=== PATIENT | female | born 1945 | race Caucasian/White ===

== ENCOUNTER 2016-10-12 09:29 | Emergency (ER) | payer MEDICARE ==
[2016-10-12 09:59] VITALS: BP 169/75
== END 2016-10-12 11:40 | disposition left against medical advice (07) ==
LOC: UCEAST 09:29
DX: R51 Headache (principal); Z53.21 Procedure and treatment not carried out due to patient leaving prior to being seen by health care provider

== ENCOUNTER 2020-01-24 18:26 | Observation (INO) ==
[2020-01-24] MEDS ORDERED: NS 0.9% 1000 ml BAG 1,000 ML IV ONE (18:55)
[2020-01-24 19:31] LABS: Troponin I 0.01 ng/mL (<0.03)
[2020-01-24 19:36] LABS: Albumin 4.1 g/dL (3.2-5.2); Albumin/Globulin Ratio 1.6 (1-3); BUN/Creatinine Ratio 19.6 (8-20); EGFR African American 71.8 (>60); EGFR Non-African American 59.4 (>60); Globulin 2.6 g/dL (2-4); Total Bilirubin 0.8 mg/dL (0.2-1.0); Total Protein 6.7 g/dL (6.4-8.9)
[2020-01-24 19:37] LABS: ABS Eosinophils 0.2 10^3/ul (0-0.6); ABS Lymphocytes 0.5 10^3/ul (1.0-4.8); ABS Monocytes 0.6 10^3/ul (0-0.8); ABS Neutrophils 9.1 10^3/ul (1.5-7.7); Eosinophil % 1.8 %; Hematocrit 40 % (35-47); Hemoglobin 13.9 g/dL (12.0-16.0); Lymphocyte % 4.9 %; Mean Corpuscular HGB Conc 35 g/dL (31-36); Mean Corpuscular Hemoglobin 32 pg (27-31); Mean Corpuscular Volume 90 fL (80-97); Mean Platelet Volume 9.1 fL (7.4-10.4); Platelet Count 70 10^3/uL (150-450); Red Blood Count 4.37 10^6 /uL (3.70-4.87); Red Cell Distribution Width 13 % (10-15); White Blood Count 10.4 10^3/uL (3.5-10.8)
[2020-01-24 21:07] LABS: Urine Appearance Cloudy; Urine Bilirubin Negative (Negative); Urine Blood Negative (Negative); Urine Color Yellow; Urine Glucose Negative (Negative); Urine Ketones Trace (Negative); Urine Nitrite Negative (Negative); Urine Protein Negative (Negative); Urine Specific Gravity 1.016 (1.010-1.030); Urine Urobilinogen Negative (Negative)
[2020-01-24 21:13] LABS: Urine Bacteria 1+ (Absent); Urine Red Blood Cell Trace(0-2/hpf) (Absent); Urine Squamous Epithelial Cell Present (Absent); Urine White Blood Cell 3+(>20/hpf) (Absent)
[2020-01-24] MEDS ORDERED: cefTRIAXone 1 gm/50 mL NS BAG 1 GM/50 ML BAG IV ONE (21:46)
[2020-01-25] MEDS ORDERED: NS 0.9% 1000 ml BAG 1,000 ML IV SCH (02:00)
[2020-01-25 09:02] LABS: ABS Eosinophils 0.4 10^3/ul (0-0.6); ABS Lymphocytes 0.7 10^3/ul (1.0-4.8); ABS Monocytes 0.5 10^3/ul (0-0.8); ABS Neutrophils 4.8 10^3/ul (1.5-7.7); Eosinophil % 6.1 %; Hematocrit 38 % (35-47); Hemoglobin 12.7 g/dL (12.0-16.0); Lymphocyte % 10.5 %; Mean Corpuscular HGB Conc 34 g/dL (31-36); Mean Corpuscular Hemoglobin 30 pg (27-31); Mean Corpuscular Volume 90 fL (80-97); Mean Platelet Volume 8.7 fL (7.4-10.4); Platelet Count 53 10^3/uL (150-450); Red Blood Count 4.19 10^6 /uL (3.70-4.87); Red Cell Distribution Width 13 % (10-15); White Blood Count 6.5 10^3/uL (3.5-10.8)
[2020-01-25 09:05] LABS: BUN/Creatinine Ratio 14.3 (8-20); C Reactive Protein 36.89 mg/L (<8.01); Calcium 8.9 mg/dL (8.6-10.3); EGFR African American 79.8 (>60); EGFR Non-African American 65.9 (>60); Magnesium 1.8 mg/dL (1.9-2.7); Potassium 3.9 mmol/L (3.5-5.0)
[2020-01-25 09:24] LABS: Troponin I 0.01 ng/mL (<0.03)
[2020-01-25 11:24] VITALS: BP 104/50
[2020-01-25] MEDS ORDERED: cefTRIAXone 1 gm/50 mL NS BAG 1 GM/50 ML BAG IVPB SCH (22:00)
== END 2020-01-25 15:25 | disposition home or self-care (01) ==
LOC: MED 18:26 → ED 18:26 → MED 23:51
PROVIDERS: ADMIT Internal Medicine; ATTEND Internal Medicine

== ENCOUNTER 2020-12-13 07:23 | Inpatient (IN) ==
[2020-12-13] MEDS ORDERED: fentaNYL 100 mcg/2 ml 50 MCG/ML VIAL IV SLOW PU ONE (07:40)
[2020-12-13] MEDS ORDERED: Lidocaine 1% VIAL 10 MG/ML VIAL INJ ONE (08:42)
[2020-12-13 09:08] LABS: ABS Eosinophils 0.1 10^3/ul (0-0.6); ABS Lymphocytes 1.5 10^3/ul (1.0-4.8); ABS Monocytes 0.5 10^3/ul (0-0.8); ABS Neutrophils 9.4 10^3/ul (1.5-7.7); Eosinophil % 0.6 %; Hematocrit 44 % (35-47); Hemoglobin 14.9 g/dL (12.0-16.0); Lymphocyte % 12.6 %; Mean Corpuscular HGB Conc 34 g/dL (31-36); Mean Corpuscular Hemoglobin 31 pg (27-31); Mean Corpuscular Volume 93 fL (80-97); Mean Platelet Volume 9.8 fL (7.4-10.4); Platelet Count 80 10^3/uL (150-450); Red Blood Count 4.78 10^6 /uL (3.70-4.87); Red Cell Distribution Width 14 % (10-15); White Blood Count 11.5 10^3/uL (3.5-10.8)
[2020-12-13 09:11] LABS: ALT 21 U/L (7-52); Albumin 4.4 g/dL (3.2-5.2); Albumin/Globulin Ratio 1.5 (1-3); Alkaline Phosphatase 56 U/L (35-149); Blood Urea Nitrogen 18 mg/dL (6-24); CO2 Carbon Dioxide 27 mmol/L (22-32); Calcium 9.4 mg/dL (8.6-10.3); Chloride 104 mmol/L (101-111); EGFR African American 65.1 (>60); EGFR Non-African American 53.8 (>60); Glucose 132 mg/dL (70-100); Sodium 137 mmol/L (135-145); Total Protein 7.4 g/dL (6.4-8.9)
[2020-12-13 09:37] LABS: Anion Gap 6 mmol/L (2-11)
[2020-12-13] MEDS ORDERED: Calcium Carb (TUMS) 500 mg CHEW TAB PO PRN (11:25)
[2020-12-13 12:20] LABS: Urine Appearance Cloudy; Urine Bilirubin Negative (Negative); Urine Blood Negative (Negative); Urine Color Amber; Urine Glucose Negative (Negative); Urine Ketones Negative (Negative); Urine Nitrite Negative (Negative); Urine Protein Negative (Negative); Urine Specific Gravity 1.015 (1.002-1.030); Urine Urobilinogen Negative (Negative)
[2020-12-13 14:58] LABS: Potassium Redraw 3.8 mmol/L (3.5-5.0)
[2020-12-14 06:22] LABS: ABS Eosinophils 0.1 10^3/ul (0-0.6); ABS Monocytes 0.8 10^3/ul (0-0.8); ABS Neutrophils 5.1 10^3/ul (1.5-7.7); Eosinophil % 1.5 %; Hematocrit 40 % (35-47); Hemoglobin 13.6 g/dL (12.0-16.0); Lymphocyte % 24.9 %; Mean Corpuscular HGB Conc 34 g/dL (31-36); Mean Corpuscular Hemoglobin 31 pg (27-31); Mean Corpuscular Volume 93 fL (80-97); Nucleated Red Blood Cells % 0.1; Platelet Count 82 10^3/uL (150-450); Red Blood Count 4.33 10^6 /uL (3.70-4.87); Red Cell Distribution Width 14 % (10-15); White Blood Count 7.9 10^3/uL (3.5-10.8)
[2020-12-14 06:24] LABS: INR 1.12 (0.86-1.15)
[2020-12-14 06:36] LABS: Calcium 9.1 mg/dL (8.6-10.3); EGFR African American 73.5 (>60); EGFR Non-African American 60.7 (>60); Potassium 3.7 mmol/L (3.5-5.0)
[2020-12-14] MEDS: Latanoprost 0.005% 2.5 ml BTL BOTH EYES SCH (08:08)
[2020-12-14] MEDS: Polyethylene Glycol 3350 17 GM PACKET PO SCH (08:26)
[2020-12-14] MEDS ORDERED: Perflutren Lipid Microsphere 3 ML VIAL ONE (08:37)
[2020-12-14] MEDS ORDERED: Senna TAB 8.6 mg TAB PO PRN (09:05)
[2020-12-14] MEDS ORDERED: ceFAZolin 2 GM in NS PREMIX 2 GM/100 ML BAG IVPB ONE (16:52)
[2020-12-14] MEDS ORDERED: ROPIVACAINE 5 MG/ML 30 ML BTL (0.5%) ONE (17:03)
[2020-12-14] MEDS ORDERED: Rocuronium 50 mg VIAL 10 mg/ml 5 ml VIAL (50 mg) ONE (17:54)
[2020-12-14] MEDS ORDERED: Lidocaine 2% PF 5 ML VIAL ONE (17:54)
[2020-12-14] MEDS ORDERED: Propofol 10 MG/ML 20 ML BTL ONE (17:54)
[2020-12-14] MEDS ORDERED: fentaNYL 250 mcg/5 ml 50 MCG/ML 5 ml VIAL (250 MCG) ONE (17:55)
[2020-12-14] MEDS ORDERED: Esmolol 10 MG/ML 10 ML (100 mg) ONE (18:20)
[2020-12-14] MEDS ORDERED: Ondansetron 4 mg VIAL 2 MG/ML 2 ml VIAL ONE (18:38)
[2020-12-14] MEDS ORDERED: Dexamethasone IV 4 MG/ML VIAL 1 ml VIAL ONE (18:38)
[2020-12-14] MEDS ORDERED: Acetaminophen IV 1 GM/100ML 100 ML IV ONE (18:40)
[2020-12-14] MEDS ORDERED: HYDROmorphone 1 MG/1 ML SYRINGE ONE ×2 (19:13→20:56)
[2020-12-14] MEDS ORDERED: Metoprolol Tartrate 5 mg VIAL 5 ml VIAL (1 mg/ml) ONE ×3 (19:35→20:21)
[2020-12-14] MEDS ORDERED: diPHENhydraMINE IV 50 MG/ML 1 ml VIAL (BENADRYL) IV PRN (20:37)
[2020-12-14] MEDS ORDERED: Naloxone 0.4 mg VIAL 0.4 mg/ml 1 ml VIAL IV PRN (20:37)
[2020-12-14] MEDS ORDERED: Prochlorperazine 5 mg/ml 2 ml VIAL (10 mg) IV PRN (20:37)
[2020-12-14 23:18] LABS: ABS Lymphocytes 0.9 10^3/ul (1.0-4.8); ABS Monocytes 0.4 10^3/ul (0-0.8); ABS Neutrophils 11.6 10^3/ul (1.5-7.7); Eosinophil % 0.3 %; Hematocrit 41 % (35-47); Hemoglobin 13.7 g/dL (12.0-16.0); Lymphocyte % 6.8 %; Mean Corpuscular HGB Conc 33 g/dL (31-36); Mean Corpuscular Hemoglobin 31 pg (27-31); Mean Corpuscular Volume 93 fL (80-97); Mean Platelet Volume 8.6 fL (7.4-10.4); Platelet Count 89 10^3/uL (150-450); Red Blood Count 4.44 10^6 /uL (3.70-4.87); Red Cell Distribution Width 14 % (10-15); White Blood Count 12.9 10^3/uL (3.5-10.8)
[2020-12-15] MEDS: ceFAZolin 1 GM X 3 DOSES POST-OP Q8H (AddVan) IVPB SCH ×3 (01:30→17:55)
[2020-12-15 06:14] LABS: ABS Monocytes 0.5 10^3/ul (0-0.8); ABS Neutrophils 7.3 10^3/ul (1.5-7.7); Hematocrit 40 % (35-47); Hemoglobin 13.3 g/dL (12.0-16.0); Lymphocyte % 11.1 %; Mean Corpuscular HGB Conc 34 g/dL (31-36); Mean Corpuscular Hemoglobin 31 pg (27-31); Mean Corpuscular Volume 93 fL (80-97); Mean Platelet Volume 8.7 fL (7.4-10.4); Platelet Count 105 10^3/uL (150-450); Red Blood Count 4.24 10^6 /uL (3.70-4.87); Red Cell Distribution Width 14 % (10-15); White Blood Count 8.9 10^3/uL (3.5-10.8)
[2020-12-15 06:34] LABS: EGFR African American 70.7 (>60); EGFR Non-African American 58.5 (>60); Potassium 4.2 mmol/L (3.5-5.0)
[2020-12-15] MEDS: Polyethylene Glycol 3350 17 GM PACKET PO SCH (08:47)
[2020-12-15] MEDS: Latanoprost 0.005% 2.5 ml BTL BOTH EYES SCH (08:48)
[2020-12-15] MEDS: Enoxaparin 40 MG/0.4 ML SYR SUBCUT SCH (12:40)
[2020-12-16] MEDS: cefTRIAXone 1 gm/50 mL NS BAG 1 GM/50 ML BAG IVPB SCH (05:32)
[2020-12-16 06:32] LABS: ABS Eosinophils 0.2 10^3/ul (0-0.6); ABS Lymphocytes 2.6 10^3/ul (1.0-4.8); ABS Monocytes 0.8 10^3/ul (0-0.8); ABS Neutrophils 4.9 10^3/ul (1.5-7.7); Eosinophil % 2.2 %; Hematocrit 36 % (35-47); Hemoglobin 12.4 g/dL (12.0-16.0); Lymphocyte % 30.7 %; Mean Corpuscular HGB Conc 35 g/dL (31-36); Mean Corpuscular Hemoglobin 32 pg (27-31); Mean Corpuscular Volume 92 fL (80-97); Mean Platelet Volume 8.9 fL (7.4-10.4); Platelet Count 128 10^3/uL (150-450); Red Blood Count 3.89 10^6 /uL (3.70-4.87); Red Cell Distribution Width 14 % (10-15); White Blood Count 8.6 10^3/uL (3.5-10.8)
[2020-12-16] MEDS: Polyethylene Glycol 3350 17 GM PACKET PO SCH (08:47)
[2020-12-16] MEDS: Latanoprost 0.005% 2.5 ml BTL BOTH EYES SCH (08:52)
[2020-12-16] MEDS: Enoxaparin 40 MG/0.4 ML SYR SUBCUT SCH (12:36)
[2020-12-17] MEDS: cefTRIAXone 1 gm/50 mL NS BAG 1 GM/50 ML BAG IVPB SCH (05:51)
[2020-12-17 05:52] LABS: Hematocrit 37 % (35-47); Hemoglobin 12.3 g/dL (12.0-16.0); Mean Corpuscular HGB Conc 34 g/dL (31-36); Mean Corpuscular Hemoglobin 32 pg (27-31); Mean Corpuscular Volume 94 fL (80-97); Mean Platelet Volume 8.5 fL (7.4-10.4); Platelet Count 125 10^3/uL (150-450); Red Blood Count 3.92 10^6 /uL (3.70-4.87); Red Cell Distribution Width 14 % (10-15); White Blood Count 7.3 10^3/uL (3.5-10.8)
[2020-12-17] MEDS: Polyethylene Glycol 3350 17 GM PACKET PO SCH (09:20)
[2020-12-17] MEDS: Latanoprost 0.005% 2.5 ml BTL BOTH EYES SCH (09:46)
[2020-12-17] MEDS ORDERED: Magnesium Hydroxide LIQ 30 ML UDC PO PRN (11:18)
[2020-12-17 11:31] VITALS: BP 145/79
[2020-12-17] MEDS: Enoxaparin 40 MG/0.4 ML SYR SUBCUT SCH (12:01)
== END 2020-12-17 14:15 | disposition home or self-care (01) | DRG 481 ==
LOC: ED 07:23 → SSU 11:09
PROVIDERS: ADMIT Internal Medicine; ATTEND Internal Medicine

== ENCOUNTER 2021-08-26 13:25 | Inpatient (IN) ==
[2021-08-26] MEDS ORDERED: HYDROcodone/ACETAMIN 5/325 mg TAB PO ONE (14:03)
[2021-08-26] MEDS ORDERED: oxyCODONE SR 10 mg TAB PO ONE (16:51)
[2021-08-26] MEDS ORDERED: HYDROmorphone 1 MG/1 ML SYRINGE IV SLOW PU PRN (17:54)
[2021-08-26] MEDS ORDERED: Ondansetron 4 mg VIAL 2 MG/ML 2 ml VIAL IV PRN (17:54)
[2021-08-26] MEDS ORDERED: Enoxaparin 40 MG/0.4 ML SYR SUBCUT ONE (17:57)
[2021-08-26] MEDS: Lactated Ringers 1000 ml BAG 1,000 ML IV SCH (23:52)
[2021-08-27 06:03] LABS: ABS Lymphocytes 1.8 10^3/ul (1.0-4.8); ABS Monocytes 0.9 10^3/ul (0-0.8); ABS Neutrophils 7.5 10^3/ul (1.5-7.7); Eosinophil % 0.2 %; Hematocrit 41 % (35-47); Hemoglobin 14.1 g/dL (12.0-16.0); INR 1.12 (0.86-1.15); Lymphocyte % 17.8 %; Mean Corpuscular HGB Conc 34 g/dL (31-36); Mean Corpuscular Hemoglobin 32 pg (27-31); Mean Corpuscular Volume 93 fL (80-97); Mean Platelet Volume 9.1 fL (7.4-10.4); Platelet Count 90 10^3/uL (150-450); Red Blood Count 4.46 10^6 /uL (3.70-4.87); Red Cell Distribution Width 13 % (10-15); White Blood Count 10.3 10^3/uL (3.5-10.8)
[2021-08-27 06:30] LABS: Calcium 9.3 mg/dL (8.6-10.3); Potassium 4.2 mmol/L (3.5-5.0); eGFR CKD-EPI 79.4 (>60)
[2021-08-27 10:29] LABS: Urine Appearance Turbid; Urine Bilirubin Negative (Negative); Urine Blood Negative (Negative); Urine Color Amber; Urine Glucose Negative (Negative); Urine Ketones 1+ (Negative); Urine Nitrite Negative (Negative); Urine Protein 1+(30 mg/dL) (Negative); Urine Specific Gravity 1.033 (1.002-1.030); Urine Urobilinogen Negative (Negative)
[2021-08-27 10:54] LABS: Urine Bacteria 1+ (Absent); Urine Red Blood Cell 2+(6-10/hpf) (Absent); Urine Squamous Epithelial Cell Present (Absent); Urine White Blood Cell Trace(0-5/hpf) (Absent)
[2021-08-27] MEDS: Lactated Ringers 1000 ml BAG 1,000 ML IV SCH ×2 (13:34→21:27)
[2021-08-27] MEDS ORDERED: Propofol 10 MG/ML 20 ML BTL ONE (15:00)
[2021-08-27] MEDS ORDERED: Lidocaine 2% PF 5 ML VIAL ONE (15:01)
[2021-08-27] MEDS ORDERED: fentaNYL 100 mcg/2 ml 50 MCG/ML VIAL ONE ×2 (15:01→17:18)
[2021-08-27] MEDS ORDERED: Rocuronium 50 mg VIAL 10 mg/ml 5 ml VIAL (50 mg) ONE (15:06)
[2021-08-27] MEDS ORDERED: fentaNYL 100 mcg/2 ml 50 MCG/ML VIAL IV PRN (15:11)
[2021-08-27] MEDS ORDERED: Ondansetron 4 mg VIAL 2 MG/ML 2 ml VIAL IV PRN (15:11)
[2021-08-27] MEDS ORDERED: Naloxone 0.4 mg VIAL 0.4 mg/ml 1 ml VIAL IV PRN (15:11)
[2021-08-27] MEDS ORDERED: oxyCODONE/Acetamin 5/325 mg TAB PO PRN (15:11)
[2021-08-27] MEDS ORDERED: ceFAZolin 2 GM in NS PREMIX 2 GM/100 ML BAG IVPB ONE (15:40)
[2021-08-27] MEDS ORDERED: Lidocaine 1% VIAL 10 MG/ML VIAL ONE (15:43)
[2021-08-27] MEDS ORDERED: Bupivacaine 0.5% 50 ML MDV VIAL ONE (15:43)
[2021-08-27] MEDS ORDERED: Phenylephrine IV 10 MG/ML 1 ml VIAL ONE (16:12)
[2021-08-27] MEDS ORDERED: HYDROmorphone 0.5 MG/0.5 ML SYRINGE ONE ×2 (16:25→16:37)
[2021-08-27] MEDS ORDERED: Ondansetron 4 mg VIAL 2 MG/ML 2 ml VIAL ONE (16:30)
[2021-08-27] MEDS ORDERED: Dexamethasone IV 4 MG/ML VIAL 1 ml VIAL ONE (16:30)
[2021-08-27] MEDS ORDERED: Acetaminophen IV 1 GM/100ML 100 ML IV ONE (17:19)
[2021-08-27 18:23] LABS: ABS Basophils 0.1 10^3/ul (0-0.2); ABS Lymphocytes 4.3 10^3/ul (1.0-4.8); ABS Neutrophils 19.4 10^3/ul (1.5-7.7); Eosinophil % 0.2 %; Hematocrit 37 % (35-47); Hemoglobin 12.4 g/dL (12.0-16.0); Lymphocyte % 17.3 %; Mean Corpuscular HGB Conc 33 g/dL (31-36); Mean Corpuscular Hemoglobin 31 pg (27-31); Mean Corpuscular Volume 95 fL (80-97); Mean Platelet Volume 9.1 fL (7.4-10.4); Platelet Count 113 10^3/uL (150-450); Red Blood Count 3.93 10^6 /uL (3.70-4.87); Red Cell Distribution Width 13 % (10-15); White Blood Count 24.9 10^3/uL (3.5-10.8)
[2021-08-27] MEDS ORDERED: Metoprolol Tartrate 5 mg VIAL 5 ml VIAL (1 mg/ml) ONE (18:35)
[2021-08-27] MEDS: Pantoprazole VIAL 40 MG VIAL IV SCH (21:27)
[2021-08-28] MEDS: ceFAZolin VIAL 1 GM in NS 0.9% 50 ML 50 ML IVPB SCH ×3 (00:26→16:44)
[2021-08-28 00:32] LABS: Hematocrit 37 % (35-47); Hemoglobin 12.1 g/dL (12.0-16.0); Mean Corpuscular HGB Conc 33 g/dL (31-36); Mean Corpuscular Hemoglobin 31 pg (27-31); Mean Corpuscular Volume 95 fL (80-97); Platelet Count 77 10^3/uL (150-450); Red Cell Distribution Width 13 % (10-15); White Blood Count 13.1 10^3/uL (3.5-10.8)
[2021-08-28] MEDS ORDERED: fentaNYL 100 mcg/2 ml 50 MCG/ML VIAL IV SLOW PU PRN ×4 (02:02→02:11)
[2021-08-28] MEDS ORDERED: HYDROmorphone 1 MG/1 ML SYRINGE IV SLOW PU PRN (02:03)
[2021-08-28] MEDS: Acetaminophen IV 1 GM/100ML 100 ML IV SCH ×3 (02:11→18:05)
[2021-08-28 05:43] LABS: ABS Neutrophils 10.3 10^3/ul (1.5-7.7); Hematocrit 31 % (35-47); Hemoglobin 10.5 g/dL (12.0-16.0); Lymphocyte % 8.4 %; Mean Corpuscular HGB Conc 34 g/dL (31-36); Mean Corpuscular Hemoglobin 31 pg (27-31); Mean Corpuscular Volume 93 fL (80-97); Mean Platelet Volume 9.2 fL (7.4-10.4); Platelet Count 93 10^3/uL (150-450); Red Blood Count 3.36 10^6 /uL (3.70-4.87); Red Cell Distribution Width 13 % (10-15); White Blood Count 12.4 10^3/uL (3.5-10.8)
[2021-08-28 06:04] LABS: Calcium 8.1 mg/dL (8.6-10.3); Magnesium 1.7 mg/dL (1.9-2.7); Potassium 4.1 mmol/L (3.5-5.0); eGFR CKD-EPI 86.1 (>60)
[2021-08-28] MEDS ORDERED: Magnesium Sulfate IV 1GM/100ML 1 GM/100 ML BAG IV ONE (08:00)
[2021-08-28] MEDS: Pantoprazole VIAL 40 MG VIAL IV SCH ×2 (08:15→20:39)
[2021-08-28] MEDS: Latanoprost 0.005% 2.5 ml BTL BOTH EYES SCH (08:19)
[2021-08-28] MEDS ORDERED: Enoxaparin 40 MG/0.4 ML SYR SUBCUT SCH (09:00)
[2021-08-28] MEDS ORDERED: Polyethylene Glycol 3350 17 GM PACKET PO SCH (09:00)
[2021-08-28] MEDS: HYDROmorphone 1 MG/1 ML SYRINGE IV SLOW PU PRN ×3 (09:11→20:39)
[2021-08-28] MEDS ORDERED: CALCIUM GLUCONATE 1GM/50ML NS 1 GM/50 ML BAG IV ONE (11:30)
[2021-08-28 15:18] LABS: Hematocrit 31 % (35-47); Hemoglobin 10.3 g/dL (12.0-16.0)
[2021-08-28] MEDS: Enoxaparin 40 MG/0.4 ML SYR SUBCUT SCH (18:05)
[2021-08-29] MEDS: Acetaminophen IV 1 GM/100ML 100 ML IV SCH ×3 (01:53→17:15)
[2021-08-29 05:56] LABS: ABS Eosinophils 0.1 10^3/ul (0-0.6); ABS Lymphocytes 1.2 10^3/ul (1.0-4.8); ABS Monocytes 0.8 10^3/ul (0-0.8); ABS Neutrophils 6.9 10^3/ul (1.5-7.7); Hematocrit 29 % (35-47); Hemoglobin 10.1 g/dL (12.0-16.0); Lymphocyte % 13.1 %; Mean Corpuscular HGB Conc 35 g/dL (31-36); Mean Corpuscular Hemoglobin 32 pg (27-31); Mean Corpuscular Volume 94 fL (80-97); Mean Platelet Volume 9.7 fL (7.4-10.4); Platelet Count 100 10^3/uL (150-450); Red Blood Count 3.11 10^6 /uL (3.70-4.87); Red Cell Distribution Width 13 % (10-15); White Blood Count 8.9 10^3/uL (3.5-10.8)
[2021-08-29 06:19] LABS: CO2 Carbon Dioxide 29 mmol/L (22-32); Calcium 8.2 mg/dL (8.6-10.3); Chloride 101 mmol/L (101-111); Sodium 137 mmol/L (135-145)
[2021-08-29 06:23] LABS: Anion Gap 7 mmol/L (2-11)
[2021-08-29 06:24] LABS: Blood Urea Nitrogen 14 mg/dL (6-24); Glucose 101 mg/dL (70-100)
[2021-08-29] MEDS ORDERED: CALCIUM GLUCONATE 1GM/50ML NS 1 GM/50 ML BAG IV ONE (07:20)
[2021-08-29] MEDS: Pantoprazole VIAL 40 MG VIAL IV SCH ×2 (08:12→22:04)
[2021-08-29] MEDS: Latanoprost 0.005% 2.5 ml BTL BOTH EYES SCH (10:07)
[2021-08-29] MEDS ORDERED: Senna TAB 8.6 mg TAB PO PRN (14:59)
[2021-08-29] MEDS ORDERED: Polyethylene Glycol 3350 17 GM PACKET PO PRN (14:59)
[2021-08-29] MEDS: Enoxaparin 40 MG/0.4 ML SYR SUBCUT SCH (17:16)
[2021-08-29] MEDS: oxyCODONE/Acetamin 5/325 mg TAB PO PRN (22:01)
[2021-08-30] MEDS: Acetaminophen IV 1 GM/100ML 100 ML IV SCH ×4 (02:07→17:44)
[2021-08-30 06:14] LABS: ABS Basophils 0.1 10^3/ul (0-0.2); ABS Eosinophils 0.3 10^3/ul (0-0.6); ABS Lymphocytes 1.9 10^3/ul (1.0-4.8); ABS Monocytes 0.9 10^3/ul (0-0.8); ABS Neutrophils 5.1 10^3/ul (1.5-7.7); Eosinophil % 3.3 %; Hematocrit 25 % (35-47); Hemoglobin 8.6 g/dL (12.0-16.0); Lymphocyte % 23.3 %; Mean Corpuscular HGB Conc 35 g/dL (31-36); Mean Corpuscular Hemoglobin 32 pg (27-31); Mean Corpuscular Volume 92 fL (80-97); Mean Platelet Volume 9.4 fL (7.4-10.4); Nucleated Red Blood Cells % 0.1; Platelet Count 95 10^3/uL (150-450); Red Blood Count 2.68 10^6 /uL (3.70-4.87); Red Cell Distribution Width 13 % (10-15); White Blood Count 8.3 10^3/uL (3.5-10.8)
[2021-08-30 06:42] LABS: Magnesium 1.8 mg/dL (1.9-2.7); Potassium 3.6 mmol/L (3.5-5.0); eGFR CKD-EPI 89.6 (>60)
[2021-08-30] MEDS ORDERED: Magnesium Sulfate 2 gm BAG 2 GM/50 ML BAG IVPB ONE (09:17)
[2021-08-30] MEDS: Pantoprazole VIAL 40 MG VIAL IV SCH (09:27)
[2021-08-30] MEDS: Latanoprost 0.005% 2.5 ml BTL BOTH EYES SCH (09:29)
[2021-08-30] MEDS: Enoxaparin 40 MG/0.4 ML SYR SUBCUT SCH (17:35)
[2021-08-30] MEDS ORDERED: Ondansetron ODT 4 mg TAB 4 MG TAB SL PRN (17:52)
[2021-08-30] MEDS: Magnesium Hydroxide LIQ 30 ML UDC PO PRN (23:09)
[2021-08-31 05:55] LABS: Hematocrit 26 % (35-47)
[2021-08-31 06:26] LABS: Calcium 7.9 mg/dL (8.6-10.3); Potassium 3.6 mmol/L (3.5-5.0); eGFR CKD-EPI 93.1 (>60)
[2021-08-31] MEDS: Latanoprost 0.005% 2.5 ml BTL BOTH EYES SCH (08:53)
[2021-08-31] MEDS: Magnesium Hydroxide LIQ 30 ML UDC PO PRN (08:53)
[2021-08-31] MEDS ORDERED: CALCIUM GLUCONATE 1GM/50ML NS 1 GM/50 ML BAG IV ONE (09:00)
[2021-08-31] MEDS: Calcium Carb (TUMS) 500 mg CHEW TAB PO SCH ×3 (10:55→19:59)
[2021-08-31 17:10] LABS: Vitamin D Total 25(OH) 9.9 ng/mL (20-50)
[2021-08-31] MEDS: Enoxaparin 40 MG/0.4 ML SYR SUBCUT SCH (18:09)
[2021-08-31] MEDS: oxyCODONE/Acetamin 5/325 mg TAB PO PRN (18:56)
[2021-09-01 05:58] LABS: Hematocrit 26 % (35-47); Hemoglobin 8.6 g/dL (12.0-16.0)
[2021-09-01 08:24] VITALS: BP 131/64
[2021-09-01] MEDS: Calcium Carb (TUMS) 500 mg CHEW TAB PO SCH (09:41)
[2021-09-01] MEDS: Latanoprost 0.005% 2.5 ml BTL BOTH EYES SCH (09:44)
[2021-09-01 09:54] LABS: Rapid COVID-19 Molecular Undetected (Undetected)
== END 2021-09-01 10:00 | DRG 956 ==
LOC: ED 13:25 → SUATTDRO 17:54 → EDHOLD 17:54 → SSU 23:11
PROVIDERS: ADMIT Hospitalist; ATTEND Hospitalist